=== PATIENT | male | born 1995 | race Caucasian/White ===

== ENCOUNTER 2023-07-02 03:22 | Emergency (ER) | payer SELFPAY | END 2023-07-02 04:31 | disposition home or self-care (01) | LOC: JD.ED 03:22 | DX: S93.401A Sprain of unspecified ligament of right ankle, initial encounter (principal); W13.0XXA Fall from, out of or through balcony, initial encounter; Y93.39 Activity, other involving climbing, rappelling and jumping off | CPT/HCPCS: 73610-26-RT; 73610-RT; 99283 ==